=== PATIENT | male | born 1990 | race Caucasian/White ===

== ENCOUNTER 2016-11-06 22:37 | Emergency (ER) | payer BC ==
[~2016-11-06] VITALS: Ht 172.7 cm; Wt 90.7 kg
[2016-11-06] MEDS ORDERED: IBUPROFEN 800 MG TABLET PO ONE (23:45)
[2016-11-06] MEDS ORDERED: IBUPROFEN 800 MG TABLET ONE (23:57)
--- NOTE | 2016-11-06 23:59 | NUR ---
Patient discharged to home in stable conditon. Written and verbal after care instructions given. Patient verbalizes understanding of instructions.
== END 2016-11-07 00:05 | disposition home or self-care (01) ==
LOC: ER 22:38
DX: S93.401A Sprain of unspecified ligament of right ankle, initial encounter (principal); X58.XXXA Exposure to other specified factors, initial encounter; Y93.89 Activity, other specified; Y92.9 Unspecified place or not applicable; Y99.9 Unspecified external cause status